=== PATIENT | female | born 2000 | race Caucasian/White ===

== ENCOUNTER 2023-11-09 16:07 | Emergency (ER) | payer OTHER ==
[~2023-11-09] VITALS: Ht 162.6 cm; Wt 59.2 kg
[2023-11-09] MEDS: SODIUM CHLORIDE 0.9% 1,000 ML IV ONE ×2 (17:40)
[2023-11-09] MEDS: ONDANSETRON HCL 4 MG/2 ML VIAL IV ONE (17:43)
[2023-11-09] MEDS: KETOROLAC TROMETH 30 MG/ML 1ML VIAL IV ONE (18:24)
[2023-11-09 18:40] LABS: Basophils # (auto) 0 10 ^3/uL (0-0.2); Basophils % (auto) 0.1 % (0.0-2.0); Eosinophils # (auto) 0 10 ^3/uL (0-0.8); Lymphocytes # (auto) 0.8 10 ^3/uL (0.4-5.4); Mean Corpuscular Hemoglobin 26.6 pg (28.0-32.0)
[2023-11-09 18:42] LABS: Hematocrit 44.1 % (36.0-46.0); Hemoglobin 14.6 g/dL (12.2-16.2); Lymphocytes % (auto) 6.6 % (10.0-50.0); Mean Corpuscular Hgb Conc. 33.1 g/dL (32.0-36.0); Mean Corpuscular Volume 80.5 fL (80.0-100.0); Monocytes # (auto) 0.8 10 ^3/uL (0-1.3); Monocytes % (auto) 6.7 % (0.0-12.0); Neutrophils # (auto) 10.4 10 ^3/uL (1.6-8.6); Neutrophils % (auto) 86.6 % (37.0-80.0); Red Blood Cells 5.48 10^6/uL (4.0-5.20); Red Cell Distribution Width 14.7 % (11.8-14.3); White Blood Cell 11.9 10^3/uL (4.4-10.8)
[2023-11-09 18:46] LABS: Chloride 96 mmol/L (98-107); Potassium 4.1 mmol/L (3.5-5.1); Sodium 134 mmol/L (136-145)
[2023-11-09 18:47] LABS: Anion Gap 7 (5-15); Calcium 10.9 mg/dL (8.5-10.1); Carbon Dioxide 31 mmol/L (20-30)
[2023-11-09 18:52] LABS: Blood Urea Nitrogen 10 mg/dL (9-23); Glucose 104 mg/dL (74-106)
[2023-11-09 20:00] VITALS: TEMP 98.3
[2023-11-09 20:05] VITALS: PULSE 73; RESP 16; O2SAT 100
[2023-11-09] MEDS: METOCLOPRAMIDE HCL 5MG/ml INJ 2ml VIAL IV ONE (20:12)
[2023-11-09] MEDS: MORPHINE SULFATE 4 MG/ML SYR/VIAL IV ONE (20:13)
[2023-11-09 20:40] VITALS: O2SAT 98
[2023-11-09 20:43] VITALS: BP 100/73; PULSE 60; RESP 12
== END 2023-11-09 21:21 | disposition left against medical advice (07) ==
LOC: ER 16:07
DX: K52.9 Noninfective gastroenteritis and colitis, unspecified (principal); R10.2 Pelvic and perineal pain; F15.90 Other stimulant use, unspecified, uncomplicated
CPT/HCPCS: 36415; 74176; 80048; 84702; 85025; 96361; 96374; 96375; 99285; J1885; J2270; J2405; J2765; J7030

== ENCOUNTER 2023-11-10 15:47 | Emergency (ER) | payer OTHER ==
[~2023-11-10] VITALS: Ht 160 cm; Wt 59.7 kg
[2023-11-10] MEDS: ONDANSETRON HCL 4 MG/2 ML VIAL IV ONE (16:48)
[2023-11-10] MEDS: KETOROLAC TROMETH 30 MG/ML 1ML VIAL IV ONE (16:48)
[2023-11-10] MEDS: SODIUM CHLORIDE 0.9% 1,000 ML IV ONE ×2 (16:48→16:49)
[2023-11-10 16:49] VITALS: PULSE 74; RESP 17; O2SAT 94
[2023-11-10 17:18] LABS: Basophils # (auto) 0 10 ^3/uL (0-0.2); Basophils % (auto) 0.1 % (0.0-2.0); Eosinophils # (auto) 0 10 ^3/uL (0-0.8); Hemoglobin 14.4 g/dL (12.2-16.2); Monocytes # (auto) 0.9 10 ^3/uL (0-1.3); Nucleated Red Blood Cells % 0.1 %
[2023-11-10 17:20] LABS: Hematocrit 43.2 % (36.0-46.0); Lymphocytes # (auto) 0.6 10 ^3/uL (0.4-5.4); Lymphocytes % (auto) 4.5 % (10.0-50.0); Mean Corpuscular Hemoglobin 26.9 pg (28.0-32.0); Mean Corpuscular Hgb Conc. 33.3 g/dL (32.0-36.0); Mean Corpuscular Volume 80.8 fL (80.0-100.0); Monocytes % (auto) 6.9 % (0.0-12.0); Neutrophils # (auto) 11.7 10 ^3/uL (1.6-8.6); Neutrophils % (auto) 88.5 % (37.0-80.0); Red Blood Cells 5.35 10^6/uL (4.0-5.20); Red Cell Distribution Width 14.9 % (11.8-14.3); White Blood Cell 13.3 10^3/uL (4.4-10.8)
[2023-11-10 17:30] LABS: Anion Gap 8 (5-15); Carbon Dioxide 32 mmol/L (20-30); Chloride 96 mmol/L (98-107); Potassium 3.3 mmol/L (3.5-5.1); Sodium 136 mmol/L (136-145)
[2023-11-10 17:31] LABS: Calcium 10.6 mg/dL (8.5-10.1)
[2023-11-10 17:36] LABS: BUN/Creatinine Ratio 13.9 (10.0-20.0); Blood Urea Nitrogen 11 mg/dL (9-23); Glucose 105 mg/dL (74-106)
[2023-11-10 18:08] VITALS: TEMP 98.1
[2023-11-10] MEDS: PROCHLORPERAZINE EDISYLATE 5 MG/ML 2ML VIAL IV ONE (19:08)
[2023-11-10 20:42] VITALS: BP 104/56; PULSE 68; RESP 16; O2SAT 98
== END 2023-11-10 20:47 | disposition left against medical advice (07) ==
LOC: ER 15:47
DX: K52.9 Noninfective gastroenteritis and colitis, unspecified (principal); F15.90 Other stimulant use, unspecified, uncomplicated
CPT/HCPCS: 36415; 80048; 85025; 96361; 96374; 96375; 99285; J0780; J1885; J2405; J7030

== ENCOUNTER 2023-11-11 15:40 | Inpatient (IN) | payer OTHER ==
[~2023-11-11] VITALS: Ht 160 cm; Wt 61.3 kg
[2023-11-11 18:04] LABS: Urine Bacteria None Seen /hpf (None Seen)
[2023-11-11 18:08] LABS: Urine Blood Negative /uL (Negative); Urine Clarity Clear (Clear); Urine Color Yellow (Yellow); Urine Protein, UAD TRACE (Negative); Urine Specific Gravity 1.022 (1.001-1.035); Urine Urobilinogen 4 mg/dL (Negative); Urine WBC 2 /hpf (0 - 5); Urine pH 8.5 (5.0-9.0)
[2023-11-11 19:38] LABS: Basophils # (auto) 0 10 ^3/uL (0-0.2); Basophils % (auto) 0.6 % (0.0-2.0); Eosinophils # (auto) 0 10 ^3/uL (0-0.8); Eosinophils % (auto) 0.2 % (0.0-7.0); Hematocrit 44.2 % (36.0-46.0); Hemoglobin 14.5 g/dL (12.2-16.2); Lymphocytes # (auto) 1.6 10 ^3/uL (0.4-5.4); Lymphocytes % (auto) 19.9 % (10.0-50.0); Mean Corpuscular Hemoglobin 26.7 pg (28.0-32.0); Mean Corpuscular Hgb Conc. 32.8 g/dL (32.0-36.0); Mean Corpuscular Volume 81.5 fL (80.0-100.0); Monocytes # (auto) 0.9 10 ^3/uL (0-1.3); Monocytes % (auto) 10.5 % (0.0-12.0); Neutrophils # (auto) 5.6 10 ^3/uL (1.6-8.6); Neutrophils % (auto) 68.8 % (37.0-80.0); Nucleated Red Blood Cells % 0.1 %; Red Blood Cells 5.42 10^6/uL (4.0-5.20); Red Cell Distribution Width 14.9 % (11.8-14.3); White Blood Cell 8.1 10^3/uL (4.4-10.8)
[2023-11-11 20:01] LABS: Alanine Aminotransferase 14 U/L (7-40); Albumin 5.2 g/dL (3.2-4.8); Alkaline Phosphatase 64 U/L (46-116); Anion Gap 11 (5-15); Aspartate Aminotransferase 13 U/L (13-40); BUN/Creatinine Ratio 17.3 (10.0-20.0); Bilirubin, Total 0.5 mg/dL (0.2-1.0); Blood Alcohol < 3.0 mg/dL (<10); Blood Urea Nitrogen 14 mg/dL (9-23); Calcium 10.5 mg/dL (8.5-10.1); Carbon Dioxide 29 mmol/L (20-30); Chloride 98 mmol/L (98-107); Glucose 98 mg/dL (74-106); Potassium 3.1 mmol/L (3.5-5.1); Sodium 138 mmol/L (136-145); Total Protein 7.8 g/dL (5.7-8.2)
[2023-11-11] MEDS: SODIUM CHLORIDE 0.9% 1,000 ML IV ONE (20:03)
[2023-11-11 20:39] LABS: Lipase 44 U/L (12-53)
[2023-11-11] MEDS: PANTOPRAZOLE 40 MG/10 ML VIAL INJ IV ONE (20:58)
[2023-11-11] MEDS: ONDANSETRON HCL 4 MG/2 ML VIAL IV ONE (20:58)
[2023-11-11 21:53] LABS: Amphetamine Screen, Urine Neg (NEGATIVE); Barbiturate Scree,Urine Neg (NEGATIVE); Benzodiazephine Screen, Urine Neg (NEGATIVE); Cocaine Screen, Urine Neg (NEGATIVE); Opiate Scree,Urine Neg (NEGATIVE)
[2023-11-11 21:54] LABS: Cannabinoid Screen, Urine Pos (NEGATIVE); Phencyclidine Screen, Urine Neg (NEGATIVE)
[2023-11-11] MEDS ORDERED: ACETAMINOPHEN 325 MG TAB PO PRN (23:30)
[2023-11-11] MEDS ORDERED: NITROGLYCERIN 0.4 MG SL TAB SL PRN (23:30)
[2023-11-11] MEDS: POTASSIUM CHL 20MEQ/100ML 100 ML IV SCH (23:53)
[2023-11-11] MEDS: SODIUM CHLORIDE 0.9% 1,000 ML IV SCH (23:53)
[2023-11-11] MEDS: ONDANSETRON HCL 4 MG/2 ML VIAL IV PRN (23:54)
[2023-11-12] MEDS: MORPHINE SULFATE INJ 2 MG/ml SYRG IV PRN ×2 (03:55→10:53)
[2023-11-12 05:15] LABS: Basophils # (auto) 0 10 ^3/uL (0-0.2); Eosinophils # (auto) 0 10 ^3/uL (0-0.8); Eosinophils % (auto) 0.1 % (0.0-7.0); Hemoglobin 12.5 g/dL (12.2-16.2); Monocytes # (auto) 0.8 10 ^3/uL (0-1.3); Neutrophils # (auto) 5.2 10 ^3/uL (1.6-8.6); Nucleated Red Blood Cells % 0.1 %
[2023-11-12 05:18] LABS: Basophils % (auto) 0.4 % (0.0-2.0); Lymphocytes # (auto) 1.7 10 ^3/uL (0.4-5.4); Lymphocytes % (auto) 21.5 % (10.0-50.0); Mean Corpuscular Hgb Conc. 32.9 g/dL (32.0-36.0); Monocytes % (auto) 10.3 % (0.0-12.0); Neutrophils % (auto) 67.7 % (37.0-80.0); Red Blood Cells 4.64 10^6/uL (4.0-5.20); White Blood Cell 7.7 10^3/uL (4.4-10.8)
[2023-11-12 05:40] LABS: Albumin 4.2 g/dL (3.2-4.8); Alkaline Phosphatase 47 U/L (46-116); Anion Gap 9 (5-15); Aspartate Aminotransferase 9 U/L (13-40); BUN/Creatinine Ratio 14.3 (10.0-20.0); Bilirubin, Total 0.4 mg/dL (0.2-1.0); Blood Urea Nitrogen 11 mg/dL (9-23); Calcium 8.9 mg/dL (8.5-10.1); Carbon Dioxide 26 mmol/L (20-30); Chloride 106 mmol/L (98-107); Glucose 96 mg/dL (74-106); Potassium 3.4 mmol/L (3.5-5.1); Sodium 141 mmol/L (136-145); Total Protein 6.3 g/dL (5.7-8.2)
[2023-11-12 05:43] LABS: Alanine Aminotransferase < 9 U/L (7-40)
[2023-11-12 07:30] VITALS: PULSE 44; RESP 19; O2SAT 95
[2023-11-12] MEDS: POTASSIUM CHL 20MEQ/100ML 100 ML IV ONE (10:52)
[2023-11-12] MEDS: ASCORBIC ACID 500 MG TAB PO SCH (10:55)
[2023-11-12] MEDS: PANTOPRAZOLE 40 MG/10 ML VIAL INJ IV SCH (10:55)
[2023-11-12] MEDS: MULTIPLE VITAMIN TAB PO SCH (10:55)
[2023-11-12] MEDS: ZINC SULFATE 220mg CAP or TAB PO SCH (10:57)
[2023-11-12 14:15] VITALS: BP 139/55; PULSE 45; RESP 16; TEMP 98; O2SAT 95
[2023-11-12 15:00] VITALS: BP 112/64; PULSE 41; RESP 12; O2SAT 98
[2023-11-12] MEDS: PROMETHAZINE HCL 6.25 MG/5 ML ORAL SYRUP PO PRN (15:48)
== END 2023-11-12 15:55 | disposition home or self-care (01) | DRG 249 ==
LOC: ER 15:40 → TELE 23:27
PROVIDERS: ADMIT Internal Medicine; ATTEND Internal Medicine
DX: K52.9 Noninfective gastroenteritis and colitis, unspecified (principal); E86.0 Dehydration; F12.10 Cannabis abuse, uncomplicated; R11.2 Nausea with vomiting, unspecified; E87.6 Hypokalemia; Z79.899 Other long term (current) drug therapy
CPT/HCPCS: 36415; 80053; 80307; 80320; 81001; 81025; 83690; 84484; 85025; 93005; 96361; 96374; 96375; C9113; G0378; J2405; J3480

== ENCOUNTER 2024-06-11 07:53 | Emergency (ER) | payer MEDICAID ==
[~2024-06-11] VITALS: Ht 165.1 cm; Wt 63.4 kg
[2024-06-11 08:15] VITALS: BP 120/89; PULSE 75; RESP 16; TEMP 96.9; O2SAT 97
[2024-06-11] MEDS ORDERED: ERY05OO OP (08:59)
[2024-06-11] MEDS ORDERED: KETO0.5S31 LEFTEYE (08:59)
--- NOTE | 2024-06-11 08:59 | ED.PDOC ---
Eye-HPI HPI Comments 24-year-old female with no MHx presents with a chief complaint of left eye irritation x1 day after her autistic son scratched her eye while playing. Complains of persistent irritation. Denies vision changes. Chief Complaint: Eye Problem Time Seen by MD: 08:03 Primary Care Provider: NONE Reviewed Notes: Nurses Notes, Medications, Allergies Allergies: Coded Allergies: NO KNOWN ALLERGIES (Unverified , 11/09/23) Home Meds No Active Prescriptions or Reported Meds Information Source: Patient Mode of Arrival: Ambulatory Past Medical History PAST MEDICAL HISTORY: Denies Surgical History: Denies all surgeries PLANT SCIENCES PROFESSOR History: Denies all PLANT SCIENCES PROFESSOR Hx Family History Family History: Unknown Social History Smoker: Non-Smoker Alcohol: Denies ETOH Use Drugs: Marijuana Lives In: Home All Other Systems: Reviewed and Negative (per hpi) Physical Exam General Appearance: No Apparent Distress, Normal HEENT: Normal ENT Inspection, PERRL/EOMI (Mild conjunctival injection to the left eye. No foreign body appreciated. No discharge. Extraocular movements intact.), Pharynx Normal, TMs Normal Neck: Full Range of Motion, Non-Tender, Normal, Normal Inspection Respiratory: Chest Non-Tender, Lungs Clear, No Accessory Muscle Use, No Respir atory Distress, Normal Breath Sounds Cardiovascular: No Edema, No JVD, No Murmur, No Gallop, Normal Peripheral Pulses, Regular Rate/Rhythm Breast Exam: Deferred Gastrointestinal: No Organomegaly, Non Tender, No Pulsatile Mass, Normal Bowel Sounds, Soft Genitalia: Deferred Pelvic: Deferred Rectal: Deferred Extremities: No calf tenderness, Normal capillary refill, Normal inspection, Normal range of motion, Non-tender, No pedal edema Musculoskeletal : Apperance: Normal Neurologic: Alert, cork compounder II-XII nml as Tested, No Motor Deficits, Normal Affect, Normal Mood, No Sensory Deficits Cerebellar Function: Normal Reflexes: Normal Skin: Dry, Normal Color, Warm Lymphatic: No Adenopathy Was a procedure done? Was a procedure done?: No EENT DIFF Eye: Viral, Corneal Abrasion X-Ray, Labs, Meds, VS Vital Signs Date Time Temp Pulse Resp B/P (MAP) Pulse Ox O2 Delivery O2 Flow Rate FiO2 06/11/24 08:15 75 16 97 Room Air 06/11/24 08:15 96.9 75 16 120/89 (99) 97 96.9 06/11/24 07:55 97.4 75 16 120/84 (96) 97 X-Ray, Labs, Meds, VS Comment History and findings consistent with corneal abrasion Applied 1 drop of tetracaine and patient reported instant relief with topical anesthesia Applied fluorescein strip Using Millan lamp corneal defect detected indicating corneal abrasion Antibiotic management: Patient discharged and advised to follow-up in 48 hours with PCP or optometry Discussed with patient's approximate healing time for corneal abrasions is somewhere between 48 to 72 hours On reevaluation, patient had symptomatic improvement. Patient is stable for discharge at this time. External notes reviewed. Test results and diagnostic imaging interpreted. All diagnostic findings, discharge care, education and instructions provided Follow-up with PCP in 2 to 3 days Patient verbalized understanding and agreed to treatment plan Vital signs stable, afebrile, no acute distress noted Patient ambulatory with strong steady gait Advised to return precautions for any new or worsening symptoms, return to ER immediately for re-evaluation Patient is aware that the purpose of this visit was for an acute medical emergency requiring emergent stabilization. Chronic conditions, including malignancies have not been ruled out. Patient is instructed to follow up with PCP as directed and discharge instructions for continued care and workup. If unable to arrange follow-up, patient is to return to the emergency department for reassessment. Patient (parent or legal guardian if applicable) was given verbal and written discharge instructions and acknowledges understanding. Time of 1ST Reevaluation: 08:56 Reevaluation 1ST: Improved Patient Education/Counseling: Diagnosis, Treatment Family Education/Counseling: Diagnosis, Treatment Departure 1 Departure Time of Disposition: 08:58 Impression: Primary Impression: Corneal abrasion Qualified Codes: S05.02XA - Injury of conjunctiva and corneal abrasion without foreign body, left eye, initial encounter Disposition: HOME / SELF CARE / HOMELESS Condition: Stable e-Prescriptions Ketorolac Tromethamine (Ophth) (Ketorolac Tromethamine) 0.5 % Leana 1 DROP LEFTEYE QID for 3 Days, #5 ML 0 Refills Prov: GARFIELD RAVI CDL BULK DRIVER 06/11/24 Erythromycin (Erythromycin) 5 Mg/Gm Oin 1 APPLIC OP TID for 7 Days, #3.5 GRAMS 0 Refills Prov: GARFIELD RAVI CDL BULK DRIVER 06/11/24 Discharged With: Self Critical Care Note Critical Care Time?: No Stability Stability form required: No Heart Score Heart Score: Heart Score Response (Comments) Value History N/A 0 EKG N/A 0 Age N/A 0 Risk Factors N/A 0 Troponin N/A 0 Total 0 GARFIELD RAVI NP Jun 11, 2024 08:59
== END 2024-06-11 08:59 | disposition home or self-care (01) ==
LOC: ER 07:53
DX: S05.02XA Injury of conjunctiva and corneal abrasion without foreign body, left eye, initial encounter (principal); F15.90 Other stimulant use, unspecified, uncomplicated; W50.4XXA Accidental scratch by another person, initial encounter; Y93.89 Activity, other specified; Y92.89 Other specified places as the place of occurrence of the external cause; Y99.8 Other external cause status

== ENCOUNTER 2025-03-18 14:54 | Emergency (ER) | payer MEDICAID ==
[~2025-03-18] VITALS: Ht 170.2 cm; Wt 79.8 kg
[~2025-03-18 14:54] MED LIST: ERY05OO OP; KETO0.5S31 LEFTEYE
[2025-03-18 14:58] VITALS: BP 122/43; PULSE 106; RESP 15; TEMP 98.5; O2SAT 97
[2025-03-18] MEDS ORDERED: ACE3T PO (16:01)
--- NOTE | 2025-03-18 16:02 | ED.PDOC ---
Eye-HPI HPI Comments 24-year-old female presents to the ER with a chief complaint of teeth pain. Patient reports on having to back molars chipped associated with the right upper back tooth has pain for the past 1.5 weeks. Patient reports on the pain radiating to the neck which is currently mild. The patient has been taking Tylenol and ibuprofen for which has not been helping recently. Patient has not scheduled a dentist appointment. Denies any other symptoms at this time. Chief Complaint: Earache Time Seen by MD: 15:32 Primary Care Provider: NONE Reviewed Notes: Nurses Notes, Medications, Allergies Allergies: Coded Allergies: NO KNOWN ALLERGIES (Unverified , 11/09/23) Home Meds Active Scripts Acetaminophen W/ Codeine (Tylenol W/Cod #3) 1 Tab Tb, 1 TAB PO Q6HP PRN for 3 Days, #12 TAB 0 Refills Prov:GARFIELD RAVI MOUNTER SOUSAPHONES 03/18/25 Ketorolac Tromethamine (Ophth) (Ketorolac Tromethamine) 0.5 % Leana, 1 DROP LEFTEYE QID for 3 Days, #5 ML 0 Refills Prov:GARFIELD RAVI MOUNTER SOUSAPHONES 06/11/24 Erythromycin (Erythromycin) 5 Mg/Gm Oin, 1 APPLIC OP TID for 7 Days, #3.5 GRAMS 0 Refills Prov:GARFIELD RAVI MOUNTER SOUSAPHONES 06/11/24 Information Source: Patient Mode of Arrival: Ambulatory Timing: Days Duration: Since onset, Days Quality: Pain Lids: Normal Conjunctiva: Normal Cornea: Normal Pupils: Normal EOM: Normal Fundus: Normal Slit lamp exam: Normal Anterior chamber: Normal Mouth: Normal ENT Ear Exam: Normal Nose: Normal Sinuses: Normal Oropharynx: Normal Onset: Spontaneous Throat Exposed to: None History of: None Associated signs and symptoms: Tooth Pain Past Medical History PAST MEDICAL HISTORY: Denies Surgical History: Denies all surgeries DIRECTOR NETWORK DEVELOPMENT History: Denies all DIRECTOR NETWORK DEVELOPMENT Hx Family History Family History: Reviewed,noncontributory to illness, Unknown Social History Smoker: Non-Smoker Alcohol: Denies ETOH Use Drugs: Marijuana Lives In: Home Constitutional: denies: chills, diaphoresis, fatigue, fever, malaise, sweats, weakness, others EENTM: reports: mouth pain; denies: blurred vision, double vision, ear bleeding, ear discharge, ear drainage, ear pain, ear ringing, eye pain, eye redness, hearing loss, mouth swelling, nasal discharge, nose bleeding, nose congestion, nose pain, photophobia, tearing, throat pain, throat swelling, voice changes, others Respiratory: denies: cough, hemoptysis, orthopnea, SOB at rest, shortness of breath, SOB with excertion, stridor, wheezing, others Cardiovascular: denies: chest pain, dizzy spells, diaphoresis, Dyspnea on exertion, edema, irregular heart beat, left arm pain, lightheadedness, palpitations, PND, syncope, others Gastrointestinal: denies: abdomen distended, abdominal pain, blood streaked bowels, constipated, diarrhea, dysphagia, difficulty swallowing, hematemesis, melena, nausea, poor appetite, poor fluid intake, rectal bleeding, rectal pain, vomiting, others Genitourinary: denies: abnormal vagina bleeding, burning, dyspareunia, dysuria, flank pain, frequency, hematuria, incontinence, pain, , vagina discharge, urgency, others Neurological: denies: dizziness, fainting, headache, left sided numbness, left sided weakness, numbness, paresthesia, pre-existing deficit, right sided n umbness, right sided weakness, seizure, speech problems, tingling, tremors, weakness, others Musculoskeletal: denies: back pain, gout, joint pain, joint swelling, muscle pain, muscle stiffness, neck pain, others Integumetry: denies: bruises, change in color, change in hair/nails, dryness, laceration, lesions, lumps, rash, wounds, others Allergic/Immunocompromised: denies: Difficulty Healing, Frequent Infections, Hives, Itching, others Hematologic/Lymphatic: denies: anemia, blood clots, easy bleeding, easy bruising, swollen glands, others Endocrine: denies: excessive hunger, excessive sweating, excessive thirst, excessive urination, flushing, intolerance to cold, intolerance to heat, unexplained weight gain, unexplained weight loss, others Psychiatric: denies: anxiety, bipolar disorder, depression, hopeless, panic disorder, schizophrenia, sleepless, suicidal, others All Other Systems: Reviewed and Negative Physical Exam General Appearance: No Apparent Distress, Normal HEENT: Normal ENT Inspection, Pharynx Normal, TMs Normal Neck: Full Range of Motion, Non-Tender, Normal, Normal Inspection Respiratory: Chest Non-Tender, Lungs Clear, No Accessory Muscle Use, No Respiratory Distress, Normal Breath Sounds Cardiovascular: No Edema, No JVD, No Murmur, No Gallop, Normal Peripheral Pulses, Regular Rate/Rhythm Breast Exam: Deferred Gastrointestinal: No Organomegaly, Non Tender, No Pulsatile Mass, Normal Bowel Sounds, Soft Genitalia: Deferred Pelvic: Deferred Rectal: Deferred Extremities: No calf tenderness, Normal capillary refill, Normal inspection, Normal range of motion, Non-tender, No pedal edema Musculoskeletal : Apperance: Normal Neurologic: Alert, manager division II-XII nml as Tested, No Motor Deficits, Normal Affect, Normal Mood, No Sensory Deficits Cerebellar Function: Normal Reflexes: Normal Skin: Dry, Normal Color, Warm Lymphatic: No Adenopathy Was a procedure done? Was a procedure done?: No EENT DIFF Eye: N/A Ear: N/A Nose: N/A Mouth: N/A Sore Throat: N/A X-Ray, Labs, Meds, VS Vital Signs Date Time Temp Pulse Resp B/P (MAP) Pulse Ox O2 Delivery O2 Flow Rate FiO2 03/18/25 14:58 98.5 106 15 122/43 97 98.5 Current Medications Medications (Trade) Dose Ordered Sig/Kevyn Route Start Time Stop Time Status Last Admin Acetaminophen/ Codeine Phosphate (Tylenol W/Cod #3 Tablet) 1 tab ONCE ONCE PO 03/18/25 16:15 03/18/25 16:16 DC 03/18/25 16:18 X-Ray, Labs, Meds, VS Comment 24-year-old female presents to the ER with a chief complaint of teeth pain. Patient arrives alert and oriented, ABC's intact, afebrile, vital signs stable, saturating well in room air Patient was given: Acetaminophen. Tolerated medications with no adverse reaction. Dental Carries/Tooth Pain Patient not immunosuppressed. No evidence of tooth fracture, avulsion, or bleeding socket. No e/o retropharangeal abscess, peritonsillar abscess, Ludwigs angina, periapical abscess. No e/o gingival hyperplasia or concern for drug reaction. Checked the CURES website, no history of narcotic use within the past year. Will prescribe [place] p.o. for pain management. Education provided on possible side effects of medication including drowsiness, nausea, respiratory distress, etc. Do not drive, operate heavy machinery or make legal decisions while taking me dication. Follow-up with your PMD within 24 to 48 hours. Additional MDM Review of External, Non-ED records: External records reviewed. Discussion with independent historian (EMS, family) history obtained from the patient/parents (if applicable) at bedside Chronic conditions affecting care: None Social determinants of health affecting care: None Consideration of admission (observation or admission): I considered escalation of care to admission for this patient, however given the reassuring workup, the patient is safe for outpatient management. Discussion with the Radiology: No Tests considered but not performed: Prescription medication considered but not given: 12 lead EKG interpretation: Time of 1ST Reevaluation: 16:02 Reevaluation 1ST: Improved Patient Education/Counseling: Diagnosis, Treatment, Prognosis Family Education/Counseling: No Family Present SEPSIS Sepsis Screen Date sepsis recognized/suspect: Mar 18, 2025 Time Sepsis recognized/suspect: 1500 Recent Procedure: No On Antibiotic Therapy: No Respiratory Rate >20: No Heart Rate >90: Yes Temp<36 C (96.8 F) or >38.3 C: No SBP <90 or MAP <65 mmHG: No New Acute Mental Status Change: No Is the patient on CPAP, BIPAP,: No Vital Signs Date Time Temp Pulse Resp B/P (MAP) Pulse Ox O2 Delivery O2 Flow Rate FiO2 03/18/25 14:58 98.5 106 15 122/43 97 98.5 Departure 1 Departure Time of Disposition: 16:03 Impression: Primary Impression: Tooth pain Disposition: 01 HOME / SELF CARE / HOMELESS Condition: Fair e-Prescriptions Acetaminophen W/ Codeine (Tylenol W/Cod #3) 1 Tab Tb 1 TAB PO Q6HP PRN for 3 Days, #12 TAB 0 Refills Prov: GARFIELD RAVI NP 03/18/25 Critical Care Note Critical Care Time?: No Stability Stability form required: No Heart Score Heart Score: Heart Score Response (Comments) Value History N/A 0 EKG N/A 0 Age N/A 0 Risk Factors N/A 0 Troponin N/A 0 Total 0 I personally scribed for GARFIELD RAVI NP ([email or web address]) on 03/18/25 at 17:06. Electronically submitted by Adilson Carpio ([email or web address]). GARFIELD RAVI NP Mar 18, 2025 16:02
[2025-03-18] MEDS: ACETAMINOPHEN/CODEINE#3 (300/30mg) TAB PO ONE (16:18)
== END 2025-03-18 16:43 | disposition home or self-care (01) ==
LOC: ER 14:54
DX: K08.89 Other specified disorders of teeth and supporting structures (principal); M54.2 Cervicalgia

== ENCOUNTER 2025-03-20 11:40 | Emergency (ER) | payer MEDICAID ==
[~2025-03-20] VITALS: Ht 170.2 cm; Wt 79.5 kg
[~2025-03-20 11:40] MED LIST changes: +ACE3T PO
[2025-03-20 12:44] LABS: Hematocrit 46.4 % (36.0-46.0); Hemoglobin 15.5 g/dL (12.2-16.2); Mean Corpuscular Hemoglobin 27.8 pg (28.0-32.0); Mean Corpuscular Volume 83.1 fL (80.0-100.0); Nucleated Red Blood Cells % 0.1 %
--- NOTE | 2025-03-20 12:44 | ED.PDOC ---
History of Present Illness HPI Comments 24-year-old female who comes in with chief complaint of toothache times 2-3 days and now nausea and vomiting. The patient states that she went to the dental office to have tooth extractions but she became somewhat pale and short of breath. The patient then started to develop some nausea and vomiting. 911 was called and the patient was transported to our facility. Upon arrival, the patient's oxygen saturation was 99%. The patient had an Accu-Chek of 125. An IV Hep-Lock was established and the heart rate was 55. The patient was given Zofran 4 mg IV push for the nausea EN route. Upon arrival, the patient is still complaining of pain. Chief Complaint: Nausea/Vomiting Time Seen by MD: 11:42 Primary Care Provider: NONE Reviewed Notes: Nurses Notes, Letterer Notes, Medications, Allergies (No allergies to medications) Allergies: Coded Allergies: NO KNOWN ALLERGIES (Unverified , 11/09/23) Home Meds Active Scripts Clindamycin Hcl (CLEOCIN) 150 Mg Cap, 1 CAP PO TID, #30 CAP Prov:CYNTHIA OLIVARES MD 03/20/25 Ondansetron Odt 4MG Tab (ZOFRAN PO) 4 Mg Tb, 4 MG PO Q12HP PRN for 7 Days, #14 TAB ODT TAB-DISSOLVE IN MOUTH, THEN SWALLOW Prov:CYNTHIA OLIVARES MD 03/20/25 Acetaminophen W/ Codeine (Tylenol W/Cod #3) 1 Tab Tb, 1 TAB PO Q6HP PRN for 3 Days, #12 TAB 0 Refills Prov:GARFIELD RAVI NP 03/18/25 Ketorolac Tromethamine (Ophth) (Ketorolac Tromethamine) 0.5 % Leana, 1 DROP LEFTEYE QID for 3 Days, #5 ML 0 Refills Prov:GARFIELD RAVI NP 06/11/24 Erythromycin (Erythromycin) 5 Mg/Gm Oin, 1 APPLIC OP TID for 7 Days, #3.5 GRAMS 0 Refills Prov:GARFIELD RAVI NP 06/11/24 Information Source: Patient, Emergency Med Personnel Mode of Arrival: EMS Severity: Moderate Timing: Days (Started 2-3 days ago) Duration: Since onset Prehospital treatment: None Associated signs and symptoms The patient has nausea and vomiting as well as some mild shortness a breath Past Medical History PAST MEDICAL HISTORY: Asthma Surgical History: Denies all surgeries PEDIATRIC PSYCHOLOGIST History: Denies all PEDIATRIC PSYCHOLOGIST Hx Family History Family History: No family hx of Cancer, No family hx of DM, Unknown Social History Smoker: Cigarettes Alcohol: Denies ETOH Use Drugs: Marijuana Lives In: Home Constitutional: denies: chills, diaphoresis, fatigue, fever, malaise, sweats, weakness, others EENTM: reports: others (Bilateral tooth pain); denies: blurred vision, double vision, ear bleeding, ear discharge, ear drainage, ear pain, ear ringing, eye pain, eye redness, hearing loss, mouth pain, mouth swelling, nasal discharge, nose bleeding, nose congestion, nose pain, photophobia, tearing, throat pain, throat swelling, voice changes Respiratory: reports: shortness of breath; denies: cough, hemoptysis, orthopnea, SOB at rest, SOB with excertion, stridor, wheezing, others Cardiovascular: denies: chest pain, dizzy spells, diaphoresis, Dyspnea on exertion, edema, irregular heart beat, left arm pain, lightheadedness, palpitations, PND, syncope, others Gastrointestinal: reports: nausea, vomiting; denies: abdomen distended, abdominal pain, blood streaked bowels, constipated, diarrhea, dysphagia, difficulty swallowing, hematemesis, melena, poor appetite, poor fluid intake, rectal bleeding, rectal pain, others Genitourinary: denies: abnormal vagina bleeding, burning, dyspareunia, dysuria, flank pain, frequency, hematuria, incontinence, pain, , vagina discharge, urgency, others Neurological: denies: dizziness, fainting, headache, left sided numbness, left sided weakness, numbness, paresthesia, pre-existing deficit, right sided numbness, right sided weakness, seizure, speech problems, tingling, tremors, weakness, others Musculoskeletal: denies: back pain, gout, joint pain, joint swelling, muscle pain, muscle stiffness, neck pain, others Integumetry: denies: bruises, change in color, change in hair/nails, dryness, laceration, lesions, lumps, rash, wounds, others Allergic/Immunocompromised: denies: Difficulty Healing, Frequent Infections, Hives, Itching, others Hematologic/Lymphatic: denies: anemia, blood clots, easy bleeding, easy bruising, swollen glands, others Endocrine: denies: excessive hunger, excessive sweating, excessive thirst, excessive urination, flushing, intolerance to cold, intolerance to heat, unexplained weight gain, unexplained weight loss, others Psychiatric: denies: anxiety, bipolar disorder, depression, hopeless, panic disorder, schizophrenia, sleepless, suicidal, others Physical Exam General Appearance: Moderate Distress HEENT: Normal ENT Inspection, Pharynx Normal, TMs Normal, Other (Bilateral jaw pain) Neck: Full Range of Motion, Non-Tender, Normal, Normal Inspection Respiratory: Chest Non-Tender, Lungs Clear, No Accessory Muscle Use, No Respiratory Distress, Normal Breath Sounds Cardiovascular: No Edema, No JVD, No Murmur, No Gallop, Normal Peripheral Pulses, Regular Rate/Rhythm Breast Exam: Deferred Gastrointestinal: No Organomegaly, Non Tender, No Pulsatile Mass, Normal Bowel Sounds, Soft Genitalia: Deferred Pelvic: Deferred Rectal: Deferred Extremities: No calf tenderness, Normal capillary refill, Normal inspection, Normal range of motion, Non-tender, No pedal edema Musculoskeletal : Apperance: Normal Neurologic: Alert, industrial mechanic II-XII nml as Tested, Motor Weakness, Normal Affect, Normal Mood, No Sensory Deficits Cerebellar Function: Normal Reflexes: Normal Skin: Dry, Normal Color, Warm Lymphatic: No Adenopathy Was a procedure done? Was a procedure done?: No Differential Dx Considerations may include: Generalized weakness, electrolyte imbalance, dehydration, tooth abscess, viral syndrome X-Ray, Labs, Meds, VS Vital Signs Date Time Temp Pulse Resp B/P (MAP) Pulse Ox O2 Delivery O2 Flow Rate FiO2 03/20/25 13:52 55 20 123/80 03/20/25 13:47 55 20 98 Room Air* 0 21 03/20/25 13:45 98.9 55 20 123/80 (94) 98 98.9 03/20/25 11:40 99.0 55 18 128/67 98 99.0 Lab Test 03/20/25 12:18 Range/Units White Blood Count 10.2 4.4-10.8 10^3/uL Red Blood Count 5.58 H 4.0-5.20 10^6/uL Hemoglobin 15.5 12.2-16.2 g/dL Hematocrit 46.4 H 36.0-46.0 % Mean Corpuscular Volume 83.1 80.0-100.0 fL Mean Corpuscular Hemoglobin 27.8 L 28.0-32.0 pg Mean Corpuscular Hemoglobin Concent 33.5 32.0-36.0 g/dL Red Cell Distribution Width 13.7 11.8-14.3 % Platelet Count 270 140-450 10^3/uL Mean Platelet Volume 8.8 6.9-10.8 fL Neutrophils (%) (Auto) 91.5 H 37.0-80.0 % Lymphocytes (%) (Auto) 5.9 L 10.0-50.0 % Monocytes (%) (Auto) 2.4 0.0-12.0 % Eosinophils (%) (Auto) 0.0 0.0-7.0 % Basophils (%) (Auto) 0.2 0.0-2.0 % Neutrophils # (Auto) 9.3 H 1.6-8.6 10 ^3/uL Lymphocytes # (Auto) 0.6 0.4-5.4 10 ^3/uL Monocytes # (Auto) 0.2 0-1.3 10 ^3/uL Eosinophils # (Auto) 0 0-0.8 10 ^3/uL Basophils # (Auto) 0 0-0.2 10 ^3/uL Nucleated Red Blood Cells 0.1 % Sodium Level 140 136-145 mmol/L Potassium Level 4.0 3.5-5.1 mmol/L Chloride Level 100 98-107 mmol/L Carbon Dioxide Level 25 20-31 mmol/L Anion Gap 15 5-15 Blood Urea Nitrogen 12 9-23 mg/dL Creatinine 0.88 0.550-1.02 mg/dL Glomerular Filtration Rate Calc 93 >90 mL/min BUN/Creatinine Ratio 13.6 10.0-20.0 Serum Glucose 120 H 74-106 mg/dL Calcium Level 10.4 8.7-10.4 mg/dL Current Medications Medications (Trade) Dose Ordered Sig/Kevyn Route Start Time Stop Time Status Last Admin Hydromorphone HCl (Dilaudid Injection) 0.5 mg ONCE ONCE IV 03/20/25 11:45 03/20/25 11:46 DC 03/20/25 13:52 Sodium Chloride 1,000 ml @ 1,000 mls/hr Q1H ONCE IV 03/20/25 11:45 03/20/25 12:44 DC 10/22/25 13:51 Ondansetron HCl (Zofran) 4 mg ONCE ONCE IV 03/20/25 11:45 03/20/25 11:46 DC 03/20/25 13:52 Clindamycin Phosphate 50 ml @ 50 mls/hr ONCE ONCE IV 03/20/25 11:45 03/20/25 12:44 DC 03/20/25 13:52 IV Hep-Lock was established. The patient was given Toradol 30 mg IV push THE PATIENT WAS STARTED ON CLINDAMYCIN IV PIGGYBACK. THE PATIENT WAS GIVEN DILAUDID 0.5 MG IV PUSH FOR THE PAIN THE PATIENT WAS GIVEN 1 L BOLUS OF NORMAL SALINE For the nausea the patient was given Zofran IV push The CBC is within normal limits. The chemistry panel is within normal limits. At this time, the patient is being discharged and will follow up with the primary care doctor The patient will return to the emergency department's condition worsens Time of 1ST Reevaluation: 12:43 Reevaluation 1ST: Improved Patient Education/Counseling: Diagnosis, Treatment, Prognosis, Need For Follow Up Family Education/Counseling: No Family Present SEPSIS Sepsis Screen Date sepsis recognized/suspect: Mar 20, 2025 Time Sepsis recognized/suspect: 7 Recent Procedure: No On Antibiotic Therapy: No Respiratory Rate >20: No Heart Rate >90: No Temp<36 C (96.8 F) or >38.3 C: No SBP <90 or MAP <65 mmHG: No New Acute Mental Status Change: No Is the patient on CPAP, BIPAP,: No Physician Orders Heplock Iv (03/20/25 11:44) Chocolate Dipper (03/20/25 11:44) Blood Pressure (03/20/25 11:44) Pulse Oximetry (03/20/25 11:44) Vital Signs Date Time Temp Pulse Resp B/P (MAP) Pulse Ox O2 Delivery O2 Flow Rate FiO2 03/20/25 13:52 55 20 123/80 03/20/25 13:47 55 20 98 Room Air* 0 21 03/20/25 13:45 98.9 55 20 123/80 (94) 98 98.9 03/20/25 11:40 99.0 55 18 128/67 98 99.0 Laboratory Tests Test 03/20/25 12:18 White Blood Count 10.2 10^3/uL (4.4-10.8) Medications Medications Dose Ordered Sig/Kevyn Route Start Time Stop Time Status Last Admin Dose Admin Clindamycin Phosphate 50 ml @ 50 mls/hr ONCE ONCE IV 03/20/25 11:45 03/20/25 12:44 DC 03/20/25 13:52 Hydromorphone HCl 0.5 mg ONCE ONCE IV 03/20/25 11:45 03/20/25 11:46 DC 03/20/25 13:52 Ondansetron HCl 4 mg ONCE ONCE IV 03/20/25 11:45 03/20/25 11:46 DC 03/20/25 13:52 Sodium Chloride 1,000 ml @ 1,000 mls/hr Q1H ONCE IV 03/20/25 11:45 03/20/25 12:44 DC 03/20/25 13:51 Departure 1 Departure Time of Disposition: 13:59 Impression: Primary Impression: Vomiting Qualified Codes: R11.2 - Nausea with vomiting, unspecified Additional Impression: Pain, dental Disposition: HOME / SELF CARE / HOMELESS Condition: Fair e-Prescriptions Clindamycin Hcl (CLEOCIN) 150 Mg Cap 1 CAP PO TID, #30 CAP Prov: CYNTHIA OLIVARES MD 03/20/25 Ondansetron Odt 4MG Tab (ZOFRAN PO) 4 Mg Tb 4 MG PO Q12HP PRN for 7 Days, #14 TAB ODT TAB-DISSOLVE IN MOUTH, THEN SWALLOW Prov: CYNTHIA OLIVARES MD 03/20/25 Discharged With: Self Critical Care Note Critical Care Time?: No Stability Stability form required: No Heart Score Heart Score: Heart Score Response (Comments) Value History N/A 0 EKG N/A 0 Age N/A 0 Risk Factors N/A 0 Troponin N/A 0 Total 0 CYNTHIA OLIVARES MD Mar 20, 2025 12:43
[2025-03-20 12:54] LABS: Chloride 100 mmol/L (98-107); Potassium 4.0 mmol/L (3.5-5.1); Sodium 140 mmol/L (136-145)
[2025-03-20 12:55] LABS: Anion Gap 15 (5-15); Calcium 10.4 mg/dL (8.7-10.4); Carbon Dioxide 25 mmol/L (20-31)
[2025-03-20 13:00] LABS: BUN/Creatinine Ratio 13.6 (10.0-20.0); Blood Urea Nitrogen 12 mg/dL (9-23)
[2025-03-20 13:10] LABS: Glucose 120 mg/dL (74-106)
[2025-03-20 13:47] VITALS: PULSE 55; RESP 20; O2SAT 98
[2025-03-20] MEDS: SODIUM CHLORIDE 0.9% 1,000 ML IV ONE (13:51)
[2025-03-20] MEDS: ONDANSETRON HCL 4 MG/2 ML VIAL IV ONE (13:52)
[2025-03-20] MEDS: HYDROmorphone HCL 2 MG/ML VL/or syr IV ONE (13:52)
[2025-03-20] MEDS: CLINDAMYCIN 600MG IV 50 ML IV ONE (13:52)
[2025-03-20] MEDS ORDERED: CLIN150C PO (14:00)
[2025-03-20] MEDS ORDERED: ZOFR4T PO (14:00)
[2025-03-20 15:46] VITALS: BP 122/64; PULSE 75; RESP 20; TEMP 98; O2SAT 98
== END 2025-03-20 15:57 | disposition home or self-care (01) ==
LOC: EDBD 11:40 → ER 11:44
DX: K08.89 Other specified disorders of teeth and supporting structures (principal); R11.2 Nausea with vomiting, unspecified; R06.02 Shortness of breath; F17.210 Nicotine dependence, cigarettes, uncomplicated; J45.909 Unspecified asthma, uncomplicated
CPT/HCPCS: 36415; 80048; 85025; 96365; 96375; 99284; J1171; J2405; J3490; J7030

== ENCOUNTER 2025-04-24 14:10 | Emergency (ER) | payer MEDICAID ==
[~2025-04-24] VITALS: Ht 167.6 cm; Wt 77.2 kg
[~2025-04-24 14:10] MED LIST changes: +CLIN150C PO; +ZOFR4T PO
[2025-04-24 14:42] VITALS: BP 116/80; PULSE 60; RESP 17; TEMP 98.4; O2SAT 99
[2025-04-24 14:43] LABS: Hematocrit 48.5 % (36.0-46.0); Hemoglobin 16.4 g/dL (12.2-16.2); Mean Corpuscular Hemoglobin 27.8 pg (28.0-32.0); Mean Corpuscular Volume 82.4 fL (80.0-100.0); Nucleated Red Blood Cells % 0.2 %
--- NOTE | 2025-04-24 14:51 | ED.PDOC ---
History of Present Illness HPI Comments 24F presents to the ER w/ prior MHx of asthma and the c/c of ABD pain. Pt reports on having had diffuse ABD cramping associated w/ N/V for the past week. Pt states on recently being diagnosed 2 weeks ago w/ poditis.Pt notes on going to [facility] yesterday and being informed w/ having low potassium and left AMA. LMP- Current. Pt does have recurring episodes of emesis in the past. Denies any symptoms at this time. Patient denies any CP, SOB, dizziness, numbness, weakness, tingling, fever, chills, or recent fall. Chief Complaint: Nausea/Vomiting Time Seen by MD: 14:15 Primary Care Provider: NONE Reviewed Notes: Nurses Notes, Medications, Allergies Allergies: Coded Allergies: NO KNOWN ALLERGIES (Unverified , 11/09/23) Home Meds Active Scripts Clindamycin Hcl (CLEOCIN) 150 Mg Cap, 1 CAP PO TID, #30 CAP Prov:CYNTHIA OLIVARES MD 03/20/25 Ondansetron Odt 4MG Tab (ZOFRAN PO) 4 Mg Tb, 4 MG PO Q12HP PRN for 7 Days, #14 TAB ODT TAB-DISSOLVE IN MOUTH, THEN SWALLOW Prov:CYNTHIA OLIVARES MD 03/20/25 Acetaminophen W/ Codeine (Tylenol W/Cod #3) 1 Tab Tb, 1 TAB PO Q6HP PRN for 3 Days, #12 TAB 0 Refills Prov:GARFIELD RAVI NP 03/18/25 Ketorolac Tromethamine (Ophth) (Ketorolac Tromethamine) 0.5 % Leana, 1 DROP LEFTEYE QID for 3 Days, #5 ML 0 Refills Prov:GARFIELD RAVI NP 06/11/24 Erythromycin (Erythromycin) 5 Mg/Gm Oin, 1 APPLIC OP TID for 7 Days, #3.5 GRAMS 0 Refills Prov:GARFIELD RAVI NP 06/11/24 Information Source: Patient Mode of Arrival: EMS Severity: Moderate Timing: Days Duration: Since onset, Days Prehospital treatment: None Past Medical History PAST MEDICAL HISTORY: Asthma Surgical History: Denies all surgeries SYSTEM SUPPORT SPECIALIST History: Denies all SYSTEM SUPPORT SPECIALIST Hx Family History Family History: Reviewed,noncontributory to illness, Unknown Social History Smoker: Cigarettes Alcohol: Denies ETOH Use Drugs: Marijuana Lives In: Home Constitutional: denies: chills, diaphoresis, fatigue, fever, malaise, sweats, weakness, others EENTM: denies: blurred vision, double vision, ear bleeding, ear discharge, ear drainage, ear pain, ear ringing, eye pain, eye redness, hearing loss, mouth pain, mouth swelling, nasal discharge, nose bleeding, nose congestion, nose pain, photophobia, tearing, throat pain, throat swelling, voice changes, others Respiratory: denies: cough, hemoptysis, orthopnea, SOB at rest, shortness of breath, SOB with excertion, stridor, wheezing, others Cardiovascular: denies: chest pain, dizzy spells, diaphoresis, Dyspnea on exertion, edema, irregular heart beat, left arm pain, lightheadedness, palpitations, PND, syncope, others Gastrointestinal: reports: abdominal pain, nausea, vomiting; denies: abdomen distended, blood streaked bowels, constipated, diarrhea, dysphagia, difficulty swallowing, hematemesis, melena, poor appetite, poor fluid intake, rectal bleeding, rectal pain, others Genitourinary: denies: abnormal vagina bleeding, burning, dyspareunia, dysuria, flank pain, frequency, hematuria, incontinence, pain, , vagina discharge, urgency, others Neurological: denies: dizziness, fainting, headache, left sided numbness, left sided weakness, numbness, paresthesia, pre-existing deficit, right sided numbness, right sided weakness, seizure, speech problems, tingling, tremors, weakness, others Musculoskeletal: denies: back pain, gout, joint pain, joint swelling, muscle pain, muscle stiffness, neck pain, others Integumetry: denies: bruises, change in color, change in hair/nails, dryness, laceration, lesions, lumps, rash, wounds, others Allergic/Immunocompromised: denies: Difficulty Healing, Frequent Infections, Hives, Itching, others Hematologic/Lymphatic: denies: anemia, blood clots, easy bleeding, easy bruising, swollen glands, others Endocrine: denies: excessive hunger, excessive sweating, excessive thirst, excessive urination, flushing, intolerance to cold, intolerance to heat, unexplained weight gain, unexplained weight loss, others Psychiatric: denies: anxiety, bipolar disorder, depression, hopeless, panic disorder, schizophrenia, sleepless, suicidal, others All Other Systems: Reviewed and Negative Physical Exam Exam Comments Diffuse ABD Pain General Appearance: No Apparent Distress, Normal HEENT: Normal ENT Inspection, Pharynx Normal, TMs Normal Neck: Full Range of Motion, Non-Tender, Normal, Normal Inspection Respiratory: Chest Non-Tender, Lungs Clear, No Accessory Muscle Use, No Respiratory Distress, Normal Breath Sounds Cardiovascular: No Edema, No JVD, No Murmur, No Gallop, Normal Peripheral Pulses, Regular Rate/Rhythm Breast Exam: Deferred Gastrointestinal: No Organomegaly, Non Tender, No Pulsatile Mass, Normal Bowel Sounds, Soft Genitalia: Deferred Pelvic: Deferred Rectal: Deferred Extremities: No calf tenderness, Normal capillary refill, Normal inspection, Normal range of motion, Non-tender, No pedal edema Musculoskeletal : Apperance: Normal Neurologic: Alert, restaurant maintenance technician II-XII nml as Tested, No Motor Deficits, Normal Affect, Normal Mood, No Sensory Deficits Cerebellar Function: Normal Reflexes: Normal Skin: Dry, Normal Color, Warm Lymphatic: No Adenopathy Was a procedure done? Was a procedure done?: No Differential Dx Considerations may include: Hypokalemia, cyclical vomiting X-Ray, Labs, Meds, VS Vital Signs Date Time Temp Pulse Resp B/P (MAP) Pulse Ox O2 Delivery O2 Flow Rate FiO2 04/24/25 14:42 60 17 99 Room Air 04/24/25 14:42 98.4 60 17 116/80 (92) 99 98.4 04/24/25 14:14 98.7 62 16 143/90 98 98.7 Lab Test 04/24/25 14:32 Range/Units White Blood Count 9.2 4.4-10.8 10^3/uL Red Blood Count 5.89 H 4.0-5.20 10^6/uL Hemoglobin 16.4 H 12.2-16.2 g/dL Hematocrit 48.5 H 36.0-46.0 % Mean Corpuscular Volume 82.4 80.0-100.0 fL Mean Corpuscular Hemoglobin 27.8 L 28.0-32.0 pg Mean Corpuscular Hemoglobin Concent 33.7 32.0-36.0 g/dL Red Cell Distribution Width 13.5 11.8-14.3 % Platelet Count 307 140-450 10^3/uL Mean Platelet Volume 8.7 6.9-10.8 fL Neutrophils (%) (Auto) 71.8 37.0-80.0 % Lymphocytes (%) (Auto) 18.0 10.0-50.0 % Monocytes (%) (Auto) 9.8 0.0-12.0 % Eosinophils (%) (Auto) 0.0 0.0-7.0 % Basophils (%) (Auto) 0.4 0.0-2.0 % Neutrophils # (Auto) 6.6 1.6-8.6 10 ^3/uL Lymphocytes # (Auto) 1.7 0.4-5.4 10 ^3/uL Monocytes # (Auto) 0.9 0-1.3 10 ^3/uL Eosinophils # (Auto) 0 0-0.8 10 ^3/uL Basophils # (Auto) 0 0-0.2 10 ^3/uL Nucleated Red Blood Cells 0.2 % Sodium Level 134 L 136-145 mmol/L Potassium Level 3.2 L 3.5-5.1 mmol/L Chloride Level 84 L 98-107 mmol/L Carbon Dioxide Level 37 H 20-31 mmol/L Anion Gap 13 5-15 Blood Urea Nitrogen 15 9-23 mg/dL Creatinine 0.84 0.550-1.02 mg/dL Glomerular Filtration Rate Calc 99 >90 mL/min BUN/Creatinine Ratio 17.9 10.0-20.0 Serum Glucose 104 74-106 mg/dL Calcium Level 10.5 H 8.7-10.4 mg/dL Total Bilirubin 1.0 0.2-1.0 mg/dL Aspartate Amino Transferase (AST) 21 13-40 U/L Alanine Aminotransferase (ALT) 14 7-40 U/L Alkaline Phosphatase 82 46-116 U/L Total Protein 8.5 H 5.7-8.2 g/dL Albumin 5.6 H 3.2-4.8 g/dL Lipase 26 12-53 U/L Current Medications Medications (Trade) Dose Ordered Sig/Kevyn Route Start Time Stop Time Status Last Admin Prochlorperazine Edisylate (Compazine Inj) 5 mg ONCE ONCE IV 04/24/25 14:30 04/24/25 14:31 DC 04/24/25 15:15 Sodium Chloride 1,000 ml @ 1,000 mls/hr Q1H ONCE IV 04/24/25 14:30 04/24/25 15:29 DC 04/24/25 14:57 Ketorolac Tromethamine (Toradol Injection) 30 mg ONCE ONCE IM 04/24/25 14:30 04/24/25 14:31 DC 04/24/25 15:02 X-Ray, Labs, Meds, VS Comment Patient AMA Time of 1ST Reevaluation: 14:45 Reevaluation 1ST: Unchanged Patient Education/Counseling: Diagnosis, Treatment, Prognosis, Need For Follow Up Family Education/Counseling: No Family Present SEPSIS Sepsis Screen Date sepsis recognized/suspect: Apr 24, 2025 Time Sepsis recognized/suspect: 1413 Recent Procedure: No On Antibiotic Therapy: No Respiratory Rate >20: No Heart Rate >90: No Temp<36 C (96.8 F) or >38.3 C: No SBP <90 or MAP <65 mmHG: No New Acute Mental Status Change: No Is the patient on CPAP, BIPAP,: No Physician Orders Urinalysis (04/24/25 14:16) Vital Signs Date Time Temp Pulse Resp B/P (MAP) Pulse Ox O2 Delivery O2 Flow Rate FiO2 04/24/25 14:42 60 17 99 Room Air 04/24/25 14:42 98.4 60 17 116/80 (92) 99 98.4 04/24/25 14:14 98.7 62 16 143/90 98 98.7 Laboratory Tests Test 04/24/25 14:32 White Blood Count 9.2 10^3/uL (4.4-10.8) Medications Medications Dose Ordered Sig/Kevyn Route Start Time Stop Time Status Last Admin Dose Admin Ketorolac Tromethamine 30 mg ONCE ONCE IM 04/24/25 14:30 04/24/25 14:31 DC 04/24/25 15:02 Prochlorperazine Edisylate 5 mg ONCE ONCE IV 04/24/25 14:30 04/24/25 14:31 DC 04/24/25 15:15 Sodium Chloride 1,000 ml @ 1,000 mls/hr Q1H ONCE IV 04/24/25 14:30 04/24/25 15:29 DC 04/24/25 14:57 Departure 1 Departure Time of Disposition: 17:38 Impression: Primary Impression: Vomiting Qualified Codes: R11.15 - Cyclical vomiting syndrome unrelated to migraine Disposition: 07 LEFT AGAINST MEDICAL ADVICE Condition: Stable Critical Care Note Critical Care Time?: No Stability Stability form required: No Heart Score Heart Score: Heart Score Response (Comments) Value History N/A 0 EKG N/A 0 Age N/A 0 Risk Factors N/A 0 Troponin N/A 0 Total 0 I personally scribed for SHAR NOVOA ([email or web address]) on 04/24/25 at 14:51. Electronically submitted by Adilson Carpio ([email or web address]). SHAR NOVOA Apr 24, 2025 14:51
[2025-04-24 14:57] LABS: Alanine Aminotransferase 14 U/L (7-40); Alkaline Phosphatase 82 U/L (46-116); Anion Gap 13 (5-15); BUN/Creatinine Ratio 17.9 (10.0-20.0); Blood Urea Nitrogen 15 mg/dL (9-23); Glucose 104 mg/dL (74-106); Lipase 26 U/L (12-53)
[2025-04-24] MEDS: SODIUM CHLORIDE 0.9% 1,000 ML IV ONE (14:57)
[2025-04-24 14:58] LABS: Bilirubin, Total 1.0 mg/dL (0.2-1.0)
[2025-04-24] MEDS: KETOROLAC TROMETH 30 MG/ML 1ML VIAL IM ONE (15:02)
[2025-04-24] MEDS: PROCHLORPERAZINE EDISYLATE 5 MG/ML 2ML VIAL IV ONE (15:15)
[2025-04-24 15:29] LABS: Albumin 5.6 g/dL (3.2-4.8); Calcium 10.5 mg/dL (8.7-10.4); Carbon Dioxide 37 mmol/L (20-31); Chloride 84 mmol/L (98-107); Potassium 3.2 mmol/L (3.5-5.1); Sodium 134 mmol/L (136-145); Total Protein 8.5 g/dL (5.7-8.2)
[2025-05-02] MEDS: POTASSIUM EFFERVESENT TAB 25 MEQ PO ONE (09:50)
== END 2025-04-24 16:56 | disposition left against medical advice (07) ==
LOC: ER 14:10 → EDUNIT# 14:10 → EDBD 14:10 → ER 16:56
DX: R10.84 Generalized abdominal pain (principal); R11.2 Nausea with vomiting, unspecified; E87.6 Hypokalemia; F17.210 Nicotine dependence, cigarettes, uncomplicated; J45.909 Unspecified asthma, uncomplicated
CPT/HCPCS: 36415; 80053; 83690; 85025; 96361; 96372; 96374; 99284; J0780; J1885; J7030